=== PATIENT | male | born 1970 | race Caucasian/White ===

== ENCOUNTER 2016-10-10 10:49 | Inpatient (IN) | payer OTHER ==
[~2016-10-10] VITALS: Ht 182.9 cm; Wt 93.9 kg
[2016-10-10 16:00] VITALS: BP 133/77
--- NOTE | 2016-10-10 17:00 | NUR ---
ADMISSION Pt 46 y/o male from home admitted to [facility] for etoh dependence. Pt alert and oriented to name, place, and time. Perrla. Skin warm and slightly moist to touch. Respirations even and unlabored. Bilateral hand tremors noted. NKA. Pt denies any sz history. Pt ambulatory with steady gait, unassisted. Skin clear. Pt slightly guarded during assessment initially. Pt denies being hospitalized recently. Pt also states this is his first time being in acute detox. Dr. Suarez aware and pt started on an Ativan prn. Pt states he does not smoke and only chews tobacco. Pt states has no PCP at the moment. Pt oriented to room and unit. substance: etoh( vodka) 4- 10 glasses daily x 1.5 years ( consumes 3 liters weekly). Last drink was on 10/10/16 and had 1 glass of vodka medical hx: Pt denies and medical hx just depression.
[2016-10-10] MEDS ORDERED: LORAZEPAM 2 MG/1 ML VIAL IM PRN (18:45)
[2016-10-10] MEDS ORDERED: DICYCLOMINE HCL 20 MG TABLET PO PRN (18:45)
[2016-10-10] MEDS ORDERED: MAGNESIUM HYDROXIDE 30 ML LIQUID UDC PO PRN (18:45)
[2016-10-10] MEDS ORDERED: THIAMINE HCL 200 MG/2 ML VIAL IM ONE (18:45)
[2016-10-10] MEDS ORDERED: MIRALAX 17 GM POWD.PACK PO PRN (18:45)
[2016-10-10] MEDS ORDERED: LOPERAMIDE HCL 2 MG CAPSULE PO PRN ×2 (18:45)
[2016-10-10] MEDS ORDERED: IBUPROFEN 400 MG TABLET PO PRN (18:45)
[2016-10-10] MEDS ORDERED: ONDANSETRON 4 MG/2 ML VIAL IM PRN (18:45)
[2016-10-10] MEDS ORDERED: ACETAMINOPHEN 325 MG TABLET PO PRN (18:45)
[2016-10-10] MEDS ORDERED: MAG HYDROX/AL HYDROX/SIMETH 30 ML LIQUID UDC PO PRN (18:45)
[2016-10-10] MEDS ORDERED: LORAZEPAM 1 MG TABLET PO PRN ×2 (18:45)
[2016-10-10] MEDS ORDERED: ONDANSETRON ODT 4 MG TAB.RAPDIS SL PRN (18:45)
[2016-10-10] MEDS: THIAMINE HCL 100 MG TABLET PO SCH (19:15)
--- NOTE | 2016-10-10 19:50 | NUR ---
Start of Shift Note: Report received from day shift nurse. Pt is a a 46yo male admitted on 10/10/16 for medically-supervised withdrawal from ETOH. Pt reports drinking 429 mL vodka daily for 1.5 years. Pt is to start a 5-day Ativan taper tomorrow; PRN Ativan available. Pt received with last day shift CIWA 1. Home medication bag signature and admission UDS collection endorsed from day shift. Pt denies a hx of seizure, denies med hx. Pt reports depression. Full code, regular diet, NKDA/NKFA. Upon start of shift assessment, pt noted with tremor, diaphoresis, reports anxiety, sensitivity to light, nausea, agitation. CIWA is 18, manual BP 175/100, HR 90. Will administer PRN Ativan and PRN Clonidine. All needs attended and met at this time. All safety precautions are in place. Will continue to monitor.
[2016-10-10 20:00] VITALS: BP 175/100
[2016-10-10] MEDS ORDERED: NAPR220C15 PO (20:02)
[2016-10-10] MEDS ORDERED: ESCI10TA PO (20:02)
[2016-10-10 20:33] LABS: BASOPHILS % (AUTO) 0.4 % (0.0-2.0); EOSINOPHILS % (AUTO) 0.8 % (0.0-7.0); HEMATOCRIT 42.5 % (40.0-50.0); HEMOGLOBIN 14.6 g/dL (14.0-18.0); LYMPHOCYTES # (AUTO) 1.6 K/uL (0.8-4.8); MEAN CORPUSCULAR HEMOGLOBIN 32.3 uug (27.0-31.0); MEAN CORPUSCULAR HGB CONC 34 g/dL (32.0-37.0); MONOCYTES # (AUTO) 0.4 K/uL (0.1-1.30); MONOCYTES % (AUTO) 7.1 % (0.0-11.0); NEUTROPHILS # (AUTO) 3.8 K/uL (1.8-8.9); NEUTROPHILS % (AUTO) 64.7 % (38.5-71.5); PLATELET COUNT (AUTO) 166 K/uL (150-450); RED BLOOD CELL COUNT(AUTO) 4.52 MIL/uL (4.70-6.10); RED CELL DISTRIBUTION WIDTH 14.6 % (11.5-14.5); WHITE BLOOD COUNT (AUTO) 5.8 K/uL (4.0-11.2)
[2016-10-10] MEDS: CLONIDINE HCL 0.1 MG TABLET PO PRN (20:40)
--- NOTE | 2016-10-10 20:40 | NUR ---
PRN Ativan and PRN Clonidine: Pt noted to be diaphoretic with moderate tremor. Pt reports anxiety, agitation, sensitivity to light, and nausea. CIWA is 18. Administered PRN Ativan 2mg PO as ordered according to CIWA score. Manual BP in left arm is 175/100. Repeated x2. Administered PRN Clonidine as ordered. Will continue to monitor.
[2016-10-10] MEDS: GABAPENTIN 300 MG CAPSULE PO SCH (20:41)
[2016-10-10 20:47] LABS: ALBUMIN 3.9 g/dL (3.4-5.0); BILIRUBIN,TOTAL 0.6 mg/dL (0.2-1.0); CALCIUM 8.6 mg/dL (8.5-10.1); MAGNESIUM 1.8 mg/dL (1.8-2.4); POTASSIUM 3.8 mmol/L (3.5-5.1); TOTAL PROTEIN, SERUM 7.3 g/dL (6.4-8.2)
[2016-10-10 20:52] LABS: CREATININE 1.4 mg/dL (0.6-1.3); THYROID STIMULATING HORMONE 2.109 mIU/mL (0.358-3.740)
[2016-10-10 21:23] LABS: HIV-1 p24 ANTIGEN NON REACTIVE (NONREACTIVE); HIV-1/2 ANTIBODY NON REACTIVE (NONREACTIVE)
--- NOTE | 2016-10-10 21:45 | NUR ---
Reassessment: Pt reports mild relief of anxiety, agitation, and nausea. CIWA decreased from 18 to 6. PRN Ativan 2mg effective. BP decreased from 175/100 to 151/98 an hour after PRN Clonidine administration, and then further decreased to 119/79 two hours later. PRN Clonidine effective. Will continue to monitor.
[2016-10-11] VITALS: BP 119/79
[2016-10-11 04:00] VITALS: BP 121/82
--- NOTE | 2016-10-11 07:30 | NUR ---
End of Shift Note: Pt is a a 46yo male admitted to [facility] on 10/10/16 for medically-supervised withdrawal from ETOH. Pt reports drinking 429 mL vodka daily for 1.5 years. Pt is to start a 5-day Ativan taper today. Pt denies seizure hx. Pt reports hx of depression. Pt is a full code, on a regular diet, and reports NKDA/NKFA. PRN Ativan 2mg was given for CIWA 18, which was effective and reduced CIWA to 6. PRN Clonidine was given for BP 175/100, which was effective and reduced BP to 151/98 within one hour and 119/79 in two hours. HR was slightly elevated at 90 and 82. All other V/S WNL. Total fluid intake this shift: 1000 mL; output: urine x 0, stool x 0. Pt is currently in bed and slept 7 hours this shift. Bed is in low position and locked, side rails up x2, call light within reach. All needs attended and met. Will continue to monitor.
[2016-10-11 08:00] VITALS: BP 148/93
--- NOTE | 2016-10-11 08:00 | NUR ---
START OF SHIFT Report received from scene shifter nurse. Patient is 46 years old male admitted on 10/10/16 for medically-supervised withdrawal from ETOH. Patient has NKA, full code and on regular diet Pt is on a 5-day Ativan taper starting today 10/11/16, Received patient awake sitting in his chair, alert X4, denies SOB, chest pain, denies history of seizure. CIWA at this time is 6, pt. reports tremor, diaphoresis and headache, scheduled Ativan in the morning was administered. Med compliant. TB skin test performed on LFA to be read on 10/13/16. All needs met at this time. Will continue to monitor patient.
[2016-10-11 08:38] LABS: *AMPHETAMINE, URINE NEGATIVE (NEGATIVE); *BARBITURATE, URINE NEGATIVE (NEGATIVE); *CANNABINOID, URINE NEGATIVE (NEGATIVE); *COCCAINE, URINE NEGATIVE (NEGATIVE); *OPIATE, URINE NEGATIVE (NEGATIVE); *PHENCYCLIDINE SCREEN,URINE NEGATIVE (NEGATIVE)
[2016-10-11] MEDS: LORAZEPAM 1 MG TABLET PO SCH ×4 (08:51→20:59)
[2016-10-11] MEDS: DOCUSATE SODIUM 250 MG CAPSULE PO SCH (08:51)
[2016-10-11] MEDS: MULTIVITAMINS,THERAPEUTIC TABLET PO SCH (08:51)
[2016-10-11] MEDS: GABAPENTIN 300 MG CAPSULE PO SCH ×3 (08:51→20:59)
[2016-10-11] MEDS: FOLIC ACID 1 MG TABLET PO SCH (08:51)
[2016-10-11] MEDS: THIAMINE HCL 100 MG TABLET PO SCH (08:51)
--- NOTE | 2016-10-11 08:55 | NUR ---
TB SKIN TEST Tuberculin skin test performed today 10/11/16 at 8:55am on LFA, to be read on 10/13/16. Patient teaching provided.
[2016-10-11] MEDS ORDERED: 5 DAY TAPER OF LORAZEPAM -SERENITY PROTOCOL PO PRN (09:00)
[2016-10-11] MEDS ORDERED: TUBERCULIN,PURIF.PROT.DERIV. 5 TU/0.1 ML TEST ID ONE (09:00)
--- NOTE | 2016-10-11 09:30 | NUR ---
NSG ENTRY Pt observed laying on bed awake watching television. Pt requested for magazines and newspapers. Will request some from recreational therapist. Bed on lowest position with side rails x2 up for safety. Call light within reach.
--- NOTE | 2016-10-11 11:00 | NUR ---
NSG ENTRY Pt observed in bed watching television. Pt with bilateral tremors noted. Bed on lowest position with side rails x2 up for safety. Call light within reach.
[2016-10-11] MEDS: ESCITALOPRAM OXALATE 10 MG TABLET PO SCH (11:49)
[2016-10-11 12:00] VITALS: BP 129/66
[2016-10-11 16:00] VITALS: BP 143/81
--- NOTE | 2016-10-11 19:09 | NUR ---
END OF SHIFT Patient is 46 years old male admitted on 10/10/16 for medically-supervised withdrawal from ETOH. Patient has NKA, full code and on regular diet. Pt is on a 5-day Ativan taper starting today 10/11/16. Alert and oriented X4, denies SOB, chest pain, denies history of seizure. CIWA at this time is 4, pt. reports tremor and anxiety. TB skin test performed on LFA to be read on 10/13/16. Patient reports poor appetite at lunch time (refused lunch) but he ate 100% dinner. Had BM this shift. All needs met at this time. dispatcher tow truckorientor will continue to monitor patient.
--- NOTE | 2016-10-11 19:45 | NUR ---
Start of Shift Note: Report received from day shift nurse. Pt is a a 46yo male admitted on 10/10/16 for medically-supervised withdrawal from ETOH. Pt reports drinking 429 mL vodka daily for 1.5 years. Pt is on day 1 of a 5-day Ativan taper. Pt received with last day shift CIWA=4. Pt reports PMHx of depression. Full code, regular diet, NKDA/NKFA. Pt is currently in room resting, and did not attend group sessions today. Will reinforce education on importance of attending group. Pt reports that taper medication is effective in managing s/s of withdrawal. All needs attended and met at this time. All safety precautions are in place. Will continue to monitor.
[2016-10-11 20:00] VITALS: BP 139/94
[2016-10-11] MEDS: CLONIDINE HCL 0.1 MG TABLET PO PRN (20:59)
--- NOTE | 2016-10-11 20:59 | NUR ---
PRN Clonidine: Pt complains of increased anxiety not relieved by non-pharmacological measures. Resting HR is 84 and BP is 139/94. Administered PRN Clonidine as ordered. Will continue to monitor.
--- NOTE | 2016-10-11 21:12 | NUR ---
MD Communication: Reported to Dr Espianl that pt is experiencing insomnia and is requesting sleep medication. Dr Espinal to input order for Trazodone.
[2016-10-11] MEDS ORDERED: TRAZODONE 50 MG TABLET PO PRN (21:15)
--- NOTE | 2016-10-11 21:24 | NUR ---
PRN Trazodone: Pt c/o inability to sleep. Administered PRN Trazodone as ordered. Will continue to monitor.
--- NOTE | 2016-10-11 22:00 | NUR ---
Reassessment: Pt reports that PRN Clonidine was effective in reducing anxiety. Pt is in bed resting comfortably. All safety precautions are in place. Will continue to monitor.
--- NOTE | 2016-10-11 22:30 | NUR ---
Reassessment: Pt is in bed with eyes closed. Respirations are even and unlabored. No s/s of acute distress noted. PRN Trazodone effective. Will continue to monitor.
[2016-10-12] VITALS: BP 106/61
[2016-10-12 04:00] VITALS: BP 103/62
[2016-10-12 06:06] LABS: HCV AB <0.1 s/co ratio (0.0-0.9); HEPATITIS B CORE AB, IgM Negative (Negative); HEPATITIS B SURFACE AG Negative (Negative)
--- NOTE | 2016-10-12 06:57 | NUR ---
End of Shift Note: Pt is a 46yo male admitted to [facility] on 10/10/16 for medically-supervised withdrawal from ETOH. Pt reports drinking 429 mL vodka daily for 1.5 years. Pt is to start the second day of a 5-day Ativan taper. Pt reports PMHx of depression. Pt is a full code, on a regular diet, and reports NKDA/NKFA. Scheduled Ativan taper effectively managed s/s of withdrawal, and CIWA score decreased from 6 to 3 after administration of taper medication. PRN Clonidine was given for anxiety and new order was received and administered for PRN Trazodone for insomnia. V/S WNL this shift with BP slightly elevated at 139/94. Total fluid intake this shift: 1125 mL; output: urine x 2, stool x 0. Pt is currently in bed and slept 10 hours this shift. Bed is in low position and locked, side rails up x2, call light within reach. All needs attended and met. Pt endorsed to day shift nurse.
--- NOTE | 2016-10-12 07:46 | NUR ---
START OF SHIFT Pt 46 y/o male admitted for etoh dependence. Pt received in room awake in bed, but easily arousable to name. Pt alert and oriented to name, place, and time. Perrla. Skin warm and slightly moist to touch. Respirations even and unlabored. Pt stated he still experiences some chills and sweats throughout the night. Bilateral hand tremors noted. It was reported that pt slept for 10 hours last night. Bed on lowest position with side rails x2 up for safety. Call light within reach. No distress noted at this time.
[2016-10-12 08:00] VITALS: BP 123/81
[2016-10-12] MEDS: ESCITALOPRAM OXALATE 10 MG TABLET PO SCH (08:46)
[2016-10-12] MEDS: MULTIVITAMINS,THERAPEUTIC TABLET PO SCH (08:46)
[2016-10-12] MEDS: GABAPENTIN 300 MG CAPSULE PO SCH ×3 (08:46→21:26)
[2016-10-12] MEDS: FOLIC ACID 1 MG TABLET PO SCH (08:46)
[2016-10-12] MEDS: THIAMINE HCL 100 MG TABLET PO SCH (08:46)
[2016-10-12] MEDS: DOCUSATE SODIUM 250 MG CAPSULE PO SCH (08:46)
[2016-10-12] MEDS: LORAZEPAM 1 MG TABLET PO SCH ×3 (08:47→21:27)
--- NOTE | 2016-10-12 09:45 | NUR ---
NSG ENTRY Pt observed in patio.Bilateral hand tremors still noted.
[2016-10-12 12:00] VITALS: BP 124/64
[2016-10-12 16:00] VITALS: BP 131/84
--- NOTE | 2016-10-12 18:11 | NUR ---
END OF SHIFT Pt 46 y/o male admitted for etoh dependence. Pt alert and oriented to name, place, and time. Perrla. Skin warm and slightly moist to touch. Respirations even and unlabored. Bilateral hand tremors noted. Pt also stated he experiences sweats throughout the day. Pt observed mostly isolative to room. Pt medication compliant and tolerated well. No ASE noted. Bed on lowest position with side rails x2 up for safety. Call light within reach. No distress noted at this time.
--- NOTE | 2016-10-12 19:50 | NUR ---
Start of Shift Note: Report received from day shift nurse. Pt is a a 46yo male admitted on 10/10/16 for medically-supervised withdrawal from ETOH. Pt reports drinking 429 mL vodka daily for 1.5 years. Pt is on the second day of a 5-day Ativan taper. Pt received with last day shift CIWA=3. Pt reports PMHx of depression. Full code, regular diet, NKDA/NKFA. Pt is currently in room resting. As per day shift nurse, pt continues to be withdrawn and not attending groups. Will reinforce education on importance of attending group. Pt reports that taper medication is effective in managing s/s of withdrawal but occasionally experiencing anxiety and tremor. All needs attended and met at this time. All safety precautions are in place. Will continue to monitor.
[2016-10-12 20:00] VITALS: BP 124/65
[2016-10-12] MEDS: CLONIDINE HCL 0.1 MG TABLET PO PRN (21:26)
--- NOTE | 2016-10-12 21:26 | NUR ---
PRN Clonidine: Pt complains of increased anxiety. Non-pharmacological measures not effective. Administered PRN Clonidine as ordered. Pt educated on risks and benefits. Will continue to monitor.
--- NOTE | 2016-10-12 22:14 | NUR ---
MD Communication: Pt requests sleeping medication. Dr Suarez contacted and new order received for Trazodone 50mg PO QHS PRN. Dr Suarez without computer access, order entered on his behalf. Order noted and carried out.
[2016-10-12] MEDS ORDERED: TRAZODONE 50 MG TABLET ONE ×2 (22:26→22:39)
[2016-10-12] MEDS: TRAZODONE 50 MG TABLET PO PRN (22:27)
--- NOTE | 2016-10-12 22:27 | NUR ---
Clonidine Reassessment and PRN Trazodone: Pt reports a decrease in anxiety with Clonidine administration. PRN Clonidine effective. Pt reports difficulty falling asleep. Administered PRN Trazodone as ordered. Will continue to monitor.
--- NOTE | 2016-10-12 23:30 | NUR ---
Reassessment: Pt is in bed with eyes closed. Respirations are even and unlabored. No s/s of acute distress noted. PRN Trazodone effective. Will continue to monitor.
[2016-10-13] VITALS: BP 116/57
--- NOTE | 2016-10-13 | NUR ---
CIWA Deferred: CIWA assessment deferred for sleep. V/S: 97.5, 72, 13, 96%, 116/57. Addendum: 10/13/16 at 0307 by BAL JARRELL RN Amended: Links added.
[2016-10-13 04:00] VITALS: BP 112/63
--- NOTE | 2016-10-13 04:00 | NUR ---
CHYNA Deferred: CHYNA deferred for sleep. V/S: 97.5, 76, 14, 95%, 112/63. Addendum: 10/13/16 at 0538 by BAL JARRELL RN Amended: Links added.
--- NOTE | 2016-10-13 07:03 | NUR ---
End of Shift Note: Pt is a 46yo male admitted to [facility] on 10/10/16 for medically-supervised withdrawal from ETOH. Pt reports PMHx of depression. Pt is a full code, on a regular diet, and reports NKDA/NKFA. Pt reports drinking 429 mL vodka daily for 1.5 years. Pt is to start day 3 of a 5-day Ativan taper. Scheduled Ativan taper effectively managed s/s of withdrawal, and CIWA score remained low; last CIWA=2 at 20:00. PRN Clonidine was given for anxiety and PRN Trazodone for insomnia. V/S stable and WNL this shift. Total fluid intake this shift: 896 mL; output: urine x 4, stool x 0. Pt is currently in bed and slept 5 hours this shift. Bed is in low position and locked, side rails up x2, call light within reach. All needs attended and met. Pt endorsed to day shift nurse.
--- NOTE | 2016-10-13 07:30 | NUR ---
START OF SHIFT NOTE: Report received from restaurant shift leader nurse. Pt is a a 46yo male admitted on 10/10/16 for ETOH dependence. Pt placed on 5 day Ativan taper. Tolerating well. Pt is alert and oriented x4. Color good, skin warm and dry. Respirations even and unlabored. Pt resting in bed at this time. safety precautions observed. call light within reach. Will continue to monitor.
[2016-10-13 08:00] VITALS: BP 114/77
[2016-10-13 08:00] LABS: CREATININE 1.3 mg/dL (0.6-1.3)
[2016-10-13] MEDS ORDERED: GABAPENTIN 300 MG CAPSULE PO SCH (09:00)
--- NOTE | 2016-10-13 09:03 | NUR ---
ARLENE ZEEWA 0 Pt states "I feel really good."
[2016-10-13] MEDS: THIAMINE HCL 100 MG TABLET PO SCH (09:10)
[2016-10-13] MEDS: LORAZEPAM 1 MG TABLET PO SCH ×4 (09:10→20:38)
[2016-10-13] MEDS: FOLIC ACID 1 MG TABLET PO SCH (09:10)
[2016-10-13] MEDS: MULTIVITAMINS,THERAPEUTIC TABLET PO SCH (09:10)
[2016-10-13] MEDS: ESCITALOPRAM OXALATE 10 MG TABLET PO SCH (09:10)
[2016-10-13] MEDS: DOCUSATE SODIUM 250 MG CAPSULE PO SCH (09:10)
[2016-10-13 13:27] VITALS: BP 127/72
[2016-10-13] MEDS: GABAPENTIN 300 MG CAPSULE PO SCH ×2 (14:53→20:38)
[2016-10-13 16:45] VITALS: BP 120/72
--- NOTE | 2016-10-13 18:47 | NUR ---
END OF SHIFT NOTE: Report given to welder 2nd shift nurse . Pt is a a 46yo male admitted on 10/10/16 for ETOH dependence. Pt placed on 5 day Ativan taper. Tolerating well. Pt is alert and oriented x4. Color good, skin warm and dry. Respirations even and unlabored. Vital signs have remained stable throughout shift. Last CIWA 0 @ 1700. Pt resting in bed at this time. Safety precautions observed. call light within reach.
--- NOTE | 2016-10-13 19:30 | NUR ---
START OF SHIFT NOTE : Pt is a a 46yo male admitted on 10/10/16 for ETOH dependence. Pt placed on 5 day Ativan taper on 10/08/2016. Tolerating well. Pt is alert and oriented x4. Color good, skin warm and dry. Respirations even and unlabored. Last CIWA=0 at 16:00. Safety measures in place : bed on lowest position with side rails x2 up for safety, call light within reach. Will continue to monitor closely and offer help.
[2016-10-13 20:00] VITALS: BP 126/72
--- NOTE | 2016-10-13 21:00 | NUR ---
PRN TRAZADONE Pt complains of sleeplessness, PRN TRAZADONE given as ordered. Non-pharmacological measures not effective. Safety measures in place : bed on lowest position with side rails x2 up for safety, call light within reach. Will continue to monitor closely and offer help.
--- NOTE | 2016-10-13 21:50 | NUR ---
REASSESSMENT TRAZODONE : Pt. is sleeping, RR=16, unlabored and even. Safety measures in place : bed on lowest position with side rails x2 up for safety, call light within reach. Will continue to monitor closely and offer help.
[2016-10-13] MEDS: TRAZODONE 50 MG TABLET PO PRN (22:24)
--- NOTE | 2016-10-14 06:45 | NUR ---
END OF SHIFT NOTE : Pt is a 46y.old male admitted on 10/10/16 for ETOH dependence. Pt placed on 5 day Ativan taper on 10/10/2016. Tolerating well. Pt is alert and oriented x4. Color good, skin warm and dry. Pt remains compliant with the treatment plan. PRN TRAZODONE was given during my shift. V/S remain WNL. RR=16, even and unlabored, lungs clear upon auscultation, abdomen soft and non- distended. Pt denies nausea, vomiting and diarrhea. LAST CIWA=0 at 0400 , OPOEYE=531 ml, voided x 1, slept 11 hours. Safety measures in place : bed on lowest position with side rails x2 up for safety, call light within reach. Will continue to monitor closely and offer help.
--- NOTE | 2016-10-14 07:32 | NUR ---
START OF SHIFT NOTE: Report received from carpet technician nurse. Pt is a a 46yo male admitted on 10/10/16 for ETOH dependence. Pt placed on 5 day Ativan taper. Tolerating well. Pt is alert and oriented x4. Color good, skin warm and dry. Respirations even and unlabored. Pt resting in bed at this time. Safety precautions observed. Call light within reach. Will continue to monitor.
[2016-10-14 08:00] VITALS: BP 126/72
[2016-10-14] MEDS: DOCUSATE SODIUM 250 MG CAPSULE PO SCH (08:58)
[2016-10-14] MEDS: THIAMINE HCL 100 MG TABLET PO SCH (08:58)
[2016-10-14] MEDS: FOLIC ACID 1 MG TABLET PO SCH (08:58)
[2016-10-14] MEDS: MULTIVITAMINS,THERAPEUTIC TABLET PO SCH (08:58)
[2016-10-14] MEDS: LORAZEPAM 1 MG TABLET PO SCH ×3 (08:58→20:41)
[2016-10-14] MEDS: ESCITALOPRAM OXALATE 10 MG TABLET PO SCH (08:58)
[2016-10-14] MEDS: GABAPENTIN 300 MG CAPSULE PO SCH ×3 (08:58→20:42)
[2016-10-14 13:31] VITALS: BP 141/93
[2016-10-14 18:16] VITALS: BP 141/93
--- NOTE | 2016-10-14 18:53 | NUR ---
END OF SHIFT NOTE: Report given to rn night nurse . Pt is a a 46yo male admitted on 10/10/16 for ETOH dependence. Pt placed on 5 day Ativan taper. Tolerating well. Pt is alert and oriented x4. Color good, skin warm and dry. Respirations even and unlabored. Vital signs have remained stable throughout shift. Last CIWA 0 @ 1700. Pt resting in bed at this time. Safety precautions observed. Call light within reach.
--- NOTE | 2016-10-14 19:30 | NUR ---
START OF SHIFT NOTE : Pt is a a 46yo male admitted on 10/10/16 for ETOH dependence. Pt placed on 5 day Ativan taper. Tolerating well. Pt is alert and oriented x4, participates in all activities. Color good, skin warm and dry. Respirations even and unlabored. Last CIWA 0 @ 16:00. Pt resting in bed at this time. Safety measures in place : bed on lowest position with side rails x2 up for safety, call light within reach. Will continue to monitor closely and offer help.
[2016-10-14 20:00] VITALS: BP 140/85
[2016-10-14] MEDS: TRAZODONE 50 MG TABLET PO PRN (21:47)
--- NOTE | 2016-10-15 06:46 | NUR ---
END OF SHIFT NOTE : Pt is a 46y.old male admitted on 10/10/16 for ETOH dependence. Pt placed on 5 day Ativan taper on 10/10/2016. Tolerating well. Pt is alert and oriented x4. Color good, skin warm and dry. Pt remains compliant with the treatment plan. PRN TRAZODONE was given during my shift. V/S remain WNL. RR=16, even and unlabored, lungs clear upon auscultation, abdomen soft and non- distended. Pt denies nausea, vomiting and diarrhea. LAST CIWA=0 at 0400 , [id number] ml, voided x 1, slept 6 hours. Safety measures in place : bed on lowest position with side rails x2 up for safety, call light within reach. Will continue to monitor closely and offer help.
--- NOTE | 2016-10-15 07:38 | NUR ---
START OF SHIFT: RECEIVED PT A/O X 4.HE PRESENTS WITH GUARDED AFFECT AND ANXIOUS MOOD. HE REPORTS MILD ANXIETY AND STATED HE SLEPT OK.CIWA 1. ATIVAN TAPER IN PROGRESS. HE EXPRESSED A DESIRE TO LEAVE TODAY TO BE WITH HIS KIDS FOR [facility]. REDIRECTED PT AND EDUCATED HIM ON THE IMPORTANCE OF COMPLETING THE TAPER AND TREATMENT PLAN. PT STATES HE WILL STAY AND COMPLY. HE BECAME FOCUSED ON DISCHARGE DATE. WILL INVOLVE MULTIDISCIPLINARY TEAM THIS MORNING.WILL CONTINUE TO PROVIDE SAFE AND SUPPORTIVE ENVIRONMENT.
[2016-10-15 08:00] VITALS: BP 123/75
[2016-10-15] MEDS: LORAZEPAM 1 MG TABLET PO SCH ×2 (08:22→21:00)
[2016-10-15] MEDS: THIAMINE HCL 100 MG TABLET PO SCH (08:22)
[2016-10-15] MEDS: ESCITALOPRAM OXALATE 10 MG TABLET PO SCH (08:22)
[2016-10-15] MEDS: MULTIVITAMINS,THERAPEUTIC TABLET PO SCH (08:22)
[2016-10-15] MEDS: GABAPENTIN 300 MG CAPSULE PO SCH ×3 (08:22→21:06)
[2016-10-15] MEDS: FOLIC ACID 1 MG TABLET PO SCH (08:22)
[2016-10-15] MEDS: DOCUSATE SODIUM 250 MG CAPSULE PO SCH (08:22)
--- NOTE | 2016-10-15 10:40 | NUR ---
MD TALKED WITH PT AND PT DECIDED TO STAY FOR TODAY. WILL CONTINUE TO MONITOR.
[2016-10-15 12:00] VITALS: BP 130/87
[2016-10-15 16:00] VITALS: BP 110/67
--- NOTE | 2016-10-15 18:57 | NUR ---
END OF SHIFT: PT CONTINUES ON ATIVAN TAPER. HE WAS RESTLESS EARLIER IN SHIFT AND WANTED TO LEAVE. STAFF REDIRECTED PT AND HE DECIDED TO STAY. PT ISOLATED IN HIS ROOM AND HAD VERY LITTLE INTERACTION WITH PEERS. HE PRESENTS GUARDED WITH ANXIOUS MOOD.LAST CIWA 1. PT STATES ATIVAN IS EFFECTIVE . PT C/O TOOTH PAIN AT END OF SHIFT. PRN MOTRIN GIVEN. WILL ENDORSE EFFECTIVENESS TO NIGHT NURSE. WILL PASS SHIFT REPORT TO ONCOMING NURSE.
--- NOTE | 2016-10-15 19:30 | NUR ---
START OF SHIFT NOTE : Pt is a a 46yo male admitted on 10/10/16 for ETOH dependence. Pt placed on 5 day Ativan taper. Tolerating well. Pt is alert and oriented x4, participates in all activities. Color good, skin warm and dry. Respirations even and unlabored. Last CIWA 1 @ 16:00. Pt resting in bed at this time. He refuse Ativan HS dose and want to leave [facility] tomorrow. Safety measures in place : bed on lowest position with side rails x2 up for safety, call light within reach. Will continue to monitor closely and offer help.
[2016-10-15 20:00] VITALS: BP 144/99
[2016-10-15] MEDS: TRAZODONE 50 MG TABLET PO PRN (21:06)
--- NOTE | 2016-10-16 06:54 | NUR ---
END OF SHIFT NOTE : Pt is a 46y.old male admitted on 10/10/16 for ETOH dependence. Pt placed on 5 day Ativan taper on 10/10/2016. Tolerated well, he refused his HS dose yesterday. Pt is alert and oriented x4. Color good, skin warm and dry. Pt remains compliant with the treatment plan. PRN TRAZODONE was given during my shift. V/S remain WNL. RR=16, even and unlabored, lungs clear upon auscultation, abdomen soft and non- distended. Pt denies nausea, vomiting and diarrhea. LAST CIWA=1 at 0400 , [id number] ml, voided x 2, slept 7 hours. Safety measures in place : bed on lowest position with side rails x2 up for safety, call light within reach. Will continue to monitor closely and offer help.
--- NOTE | 2016-10-16 07:51 | NUR ---
START OF SHIFT Received pt this am AOx4. Pt awake in room drinking coffee states he is ready to leave today and is going to speak with discharge planning and md this morning. He states he has been ready for a couple of days now to be discharged. Educated pt on importance of completing taper and treatment. Pt is still adamant about leaving today. CIWA 1 per night nurse. Pt refused Ativan last night and states he is not going to take it today either. Pt slept 7 hours. PRN trazodone given per night nurse with effectiveness. Will communicate with MD this morning. Will continue to provide safe and supportive environment.
[2016-10-16 08:01] VITALS: BP 94/61
[2016-10-16] MEDS: THIAMINE HCL 100 MG TABLET PO SCH (08:12)
[2016-10-16] MEDS: ESCITALOPRAM OXALATE 10 MG TABLET PO SCH (08:12)
[2016-10-16] MEDS: DOCUSATE SODIUM 250 MG CAPSULE PO SCH (08:12)
[2016-10-16] MEDS: GABAPENTIN 300 MG CAPSULE PO SCH (08:12)
[2016-10-16] MEDS: MULTIVITAMINS,THERAPEUTIC TABLET PO SCH (08:12)
[2016-10-16] MEDS: FOLIC ACID 1 MG TABLET PO SCH (08:12)
[2016-10-16 12:00] VITALS: BP 141/88
[2016-10-16] MEDS ORDERED: NICOTINE POLACRILEX 4 MG GUM-PK OF TEN BC PRN (12:30)
[2016-10-16] MEDS ORDERED: NICOTINE 7 MG/24HR PATCH TD SCH (12:30)
[2016-10-16] MEDS ORDERED: NICO1PAT46 TD (13:13)
[2016-10-16] MEDS ORDERED: NICO4GUM BC (13:13)
[2016-10-16] MEDS ORDERED: Gabapentin PO (13:13)
[2016-10-16 14:27] LABS: *AMPHETAMINE, URINE NEGATIVE (NEGATIVE); *BARBITURATE, URINE NEGATIVE (NEGATIVE); *CANNABINOID, URINE NEGATIVE (NEGATIVE); *COCCAINE, URINE NEGATIVE (NEGATIVE); *OPIATE, URINE NEGATIVE (NEGATIVE); *PHENCYCLIDINE SCREEN,URINE NEGATIVE (NEGATIVE)
--- NOTE | 2016-10-16 14:38 | NUR ---
DISCHARGE NOTE: Pt is in stable condition. VS WNL. Pt is AOx4, skin intact. Pt denies any S/I AND H/I. All discharge paperwork complete dated and signed. Pt educated about dc instructions, what to do after discharge and when to contact MD as well as S/S to report to MD. Pt verbalized understanding of all info given. Pt last CIWA 0. Pt was discharged from [facility] on 10/16/16 at 1437. Pt taken to lobby by [facility] SITE COORDINATOR and left building with all belongings, rx, and own medications. MD has been notified of pt discharge.
== END 2016-10-16 14:42 | disposition home or self-care (01) | DRG 895 ==
LOC: SRC 14:25
PROVIDERS: ADMIT Internal Medicine; ATTEND Internal Medicine
PROC: HZ2ZZZZ Detoxification Services for Substance Abuse Treatment (ICD-10-PCS; principal; 2016-10-10)
PROC: HZ31ZZZ Individual Counseling for Substance Abuse Treatment, Behavioral (ICD-10-PCS; 2016-10-11)
PROC: HZ41ZZZ Group Counseling for Substance Abuse Treatment, Behavioral (ICD-10-PCS; 2016-10-14)
DX: F10.230 Alcohol dependence with withdrawal, uncomplicated (principal); F33.1 Major depressive disorder, recurrent, moderate; N17.9 Acute kidney failure, unspecified; Y90.1 Blood alcohol level of 20-39 mg/100 ml; E86.0 Dehydration; Z79.899 Other long term (current) drug therapy; F17.220 Nicotine dependence, chewing tobacco, uncomplicated; F41.9 Anxiety disorder, unspecified
CPT/HCPCS: 36415; 70030-TC; 80307; 83690; 83735; 84443; 85025; 86580; 86592; 86705; 86803; 87340; 87806; A4663; A9150; G6040-TC